=== PATIENT | male | born 1985 | race African-American/Black ===

== ENCOUNTER 2024-03-30 21:12 | Emergency (ER) | payer MEDICAID ==
[~2024-03-30] VITALS: Ht 182.9 cm; Wt 81.8 kg
[2024-03-30 21:24] VITALS: TEMP 99
[2024-03-30] MEDS ORDERED: KETOROLAC TROMETHAMINE 30 MG/ML VIAL IM ONE (23:00)
[2024-03-30] MEDS: KETOROLAC TROMETHAMINE 60 MG/2 ML VIAL IM ONE (23:01)
[2024-03-30] MEDS ORDERED: IBUP-1492 PO (23:48)
[2024-03-30 23:56] VITALS: BP 132/84; PULSE 84; RESP 16; O2SAT 98
== END 2024-03-31 00:12 | disposition home or self-care (01) ==
LOC: EMS 21:13
DX: M25.512 Pain in left shoulder (principal); M25.552 Pain in left hip; R07.89 Other chest pain
CPT/HCPCS: 99284; 71045; 73503; 96372; J1885